=== PATIENT | male | born 1940 | race Caucasian/White ===

== ENCOUNTER 2020-10-11 11:42 | Outpatient (CLI) | payer MEDICARE, BC ==
[2020-10-11 13:52] LABS: Hemoglobin 15.6 g/dL (13.5-17.5); Mean Corpuscular HGB CONC 34.1 g/dL (32.0-36.0); Mean Corpuscular Hemoglobin 32.2 pg (27.0-33.0); Mean Corpuscular Volume 94.6 fl (81.2-95.1); Mean Platelet Volume 10.6 fl (7.4-10.4); Platelet Count 247 10x3/uL (150-450); RBC Distribution Width 12.9 % (11.5-14.5); Red Blood Cell (RBC) Count 4.84 10x6/uL (4.32-5.72); White Blood Cell (WBC) Count 6.5 10x3/uL (3.5-10.5)
[2020-10-11 14:01] LABS: INR-International Normal Ratio 1.1; Prothrombin Time 12.6 sec (9.5-12.1)
[2020-10-11 14:16] LABS: Anion Gap 13 mmol/L (10-20); BUN (Urea Nitrogen) 30 mg/dL (8.4-25.7); Calc. Creatinine Clearance 0 mL/min (70-130); Calcium 9.8 mg/dL (7.8-10.44); Carbon Dioxide 28 mmol/L (23-31); Chloride 108 mmol/L (98-107); Glucose 104 mg/dL (83-110); Potassium 4.3 mmol/L (3.5-5.1); Sodium 145 mmol/L (136-145)
[2020-10-12 07:59] LABS: SARS-CoV-2 PCR by NAA Not Detected (NotDetected)
== END 2020-10-11 11:43 | disposition home or self-care (01) ==
LOC: LABBT 11:42
PROVIDERS: ATTEND Internal Medicine Cardiovascular Disease
DX: Z01.818 Encounter for other preprocedural examination (principal); I48.19 Other persistent atrial fibrillation
CPT/HCPCS: 80048; 85027; 85610; U0003; U0005

== ENCOUNTER 2020-10-14 07:01 | Day surgery (SDC) | payer MEDICARE, BC ==
[2020-10-13 12:54] VITALS: BMI 35.1
[2020-10-14] MEDS ORDERED: Heparin 25,000 units/D5W 500 ML ONE (09:36)
[2020-10-14] MEDS ORDERED: Heparin 10,000 UNITS/ 10 ML VIAL ONE (09:36)
[2020-10-14] MEDS ORDERED: Fentanyl 100 MCG/2 ML VIAL ONE ×2 (10:50→15:51)
[2020-10-14] MEDS ORDERED: Rocuronium Bromide 10 MG/ML (10ML VIAL) ONE (11:12)
[2020-10-14] MEDS ORDERED: Ondansetron PF 4 MG/2 ML Vial ONE (11:12)
[2020-10-14] MEDS ORDERED: PROPOFOL 200 MG/20 ML VIAL ONE (11:12)
[2020-10-14] MEDS ORDERED: Lidocaine 1% PF 5 ML VIAL ONE (11:12)
[2020-10-14] MEDS ORDERED: PHENYLEPHRINE-NS 100 MCG/ML 10 ML SYRINGE ONE (11:12)
[2020-10-14] MEDS ORDERED: Dexamethasone 20 MG/5 ML VIAL ONE (11:12)
[2020-10-14] MEDS ORDERED: Protamine Sulfate 50 MG/5 ML VIAL ONE (13:42)
[2020-10-14] MEDS ORDERED: Ondansetron HCl/PF 4 MG/2 ML Vial IVP PRN (14:17)
[2020-10-14] MEDS ORDERED: SUGAMMADEX SODIUM 200 MG/2 ML VIAL ONE (15:29)
== END 2020-10-14 18:16 | disposition home or self-care (01) ==
LOC: SDC 07:01
PROVIDERS: ATTEND Internal Medicine Cardiovascular Disease
PROC: B24BZZ4 Ultrasonography of Heart with Aorta, Transesophageal (ICD-10-PCS; principal; 2020-10-14)
PROC: B24CZZ4 Ultrasonography of Pericardium, Transesophageal (ICD-10-PCS; 2020-10-14)
PROC: 4B02XSZ Measurement of Cardiac Pacemaker, External Approach (ICD-10-PCS; 2020-10-14)
PROC: 02K83ZZ Map Conduction Mechanism, Percutaneous Approach (ICD-10-PCS; 2020-10-14)
DX: I48.19 Other persistent atrial fibrillation (principal); I48.3 Typical atrial flutter; I49.5 Sick sinus syndrome; I12.9 Hypertensive chronic kidney disease with stage 1 through stage 4 chronic kidney disease, or unspecified chronic kidney disease; N18.2 Chronic kidney disease, stage 2 (mild); Z79.01 Long term (current) use of anticoagulants; Z79.1 Long term (current) use of non-steroidal anti-inflammatories (NSAID); Z79.899 Other long term (current) drug therapy; Z95.0 Presence of cardiac pacemaker; Z98.52 Vasectomy status; Z95.5 Presence of coronary angioplasty implant and graft
CPT/HCPCS: 76942; 85347 ×2; 92960; 93005; 93312; 93613; 93655; 93656; 93662; C1730; C1732; C1759; C1894; C2630; 93010; J1100; J1644; J2405; J2704; J2720; J3010

== ENCOUNTER 2020-12-23 06:05 | Day surgery (SDC) | payer MEDICARE, BC ==
[2020-12-22 10:57] VITALS: BMI 35.7
[2020-12-23] MEDS ORDERED: PROPOFOL 20 ML ONE (07:07)
== END 2020-12-23 08:18 | disposition home or self-care (01) ==
LOC: CCL 06:05
PROVIDERS: ATTEND Internal Medicine Cardiovascular Disease
PROC: 5A2204Z Restoration of Cardiac Rhythm, Single (ICD-10-PCS; principal; 2020-12-23)
DX: I48.4 Atypical atrial flutter (principal); I48.0 Paroxysmal atrial fibrillation; I49.5 Sick sinus syndrome; I12.9 Hypertensive chronic kidney disease with stage 1 through stage 4 chronic kidney disease, or unspecified chronic kidney disease; N18.2 Chronic kidney disease, stage 2 (mild); I25.10 Atherosclerotic heart disease of native coronary artery without angina pectoris; Z79.01 Long term (current) use of anticoagulants; Z79.899 Other long term (current) drug therapy; Z88.8 Allergy status to other drugs, medicaments and biological substances; Z95.0 Presence of cardiac pacemaker
CPT/HCPCS: 92960; 93005; 93010; J2704

== ENCOUNTER 2021-12-08 14:42 | Outpatient (CLI) | payer MEDICARE, BC ==
[2021-12-08 17:24] LABS: Hemoglobin 16.2 g/dL (13.5-17.5); Mean Corpuscular Hemoglobin 33.1 pg (27.0-33.0); Mean Corpuscular Volume 91.8 fl (81.2-95.1); Mean Platelet Volume 10.3 fl (7.4-10.4); Platelet Count 264 10x3/uL (150-450); RBC Distribution Width 12.4 % (11.5-14.5); White Blood Cell (WBC) Count 7.2 10x3/uL (3.5-10.5)
[2021-12-08 17:40] LABS: INR-International Normal Ratio 1.1; Prothrombin Time 11.9 sec (9.5-12.1)
[2021-12-08 17:47] LABS: Anion Gap 16 mmol/L (10-20); BUN (Urea Nitrogen) 24 mg/dL (8.4-25.7); Calc. Creatinine Clearance 0 mL/min (70-130); Calcium 9.3 mg/dL (7.8-10.44); Carbon Dioxide 26 mmol/L (23-31); Chloride 104 mmol/L (98-107); Estimated GFR 88; Glucose 91 mg/dL (83-110); Sodium 142 mmol/L (136-145)
== END 2021-12-08 14:43 | disposition home or self-care (01) ==
LOC: LABBT 14:42
PROVIDERS: ATTEND Internal Medicine Cardiovascular Disease
DX: Z01.812 Encounter for preprocedural laboratory examination (principal); I48.19 Other persistent atrial fibrillation
CPT/HCPCS: 80048; 85027; 85610

== ENCOUNTER 2021-12-13 06:21 | Day surgery (SDC) | payer MEDICARE, BC ==
[2021-12-12 09:48] VITALS: BMI 35.9
== END 2021-12-13 07:08 | disposition home or self-care (01) ==
LOC: SDC 06:21
PROVIDERS: ATTEND Internal Medicine Cardiovascular Disease
DX: I48.0 Paroxysmal atrial fibrillation (principal); I48.3 Typical atrial flutter; I48.4 Atypical atrial flutter; I49.5 Sick sinus syndrome; I12.9 Hypertensive chronic kidney disease with stage 1 through stage 4 chronic kidney disease, or unspecified chronic kidney disease; N18.2 Chronic kidney disease, stage 2 (mild); Z53.9 Procedure and treatment not carried out, unspecified reason; Z79.899 Other long term (current) drug therapy; Z88.8 Allergy status to other drugs, medicaments and biological substances; Z95.0 Presence of cardiac pacemaker
CPT/HCPCS: 93005; 93010

== ENCOUNTER 2021-12-20 05:33 | Day surgery (SDC) | payer MEDICARE, BC ==
[2021-12-19 13:08] VITALS: BMI 35.4
[2021-12-20] MEDS ORDERED: PROPOFOL 40 ML ONE (06:37)
== END 2021-12-20 08:35 | disposition home or self-care (01) ==
LOC: SDC 05:33
PROVIDERS: ATTEND Internal Medicine Cardiovascular Disease
PROC: 5A2204Z Restoration of Cardiac Rhythm, Single (ICD-10-PCS; principal; 2021-12-20)
DX: I48.4 Atypical atrial flutter (principal); I48.0 Paroxysmal atrial fibrillation; Z79.899 Other long term (current) drug therapy; Z88.8 Allergy status to other drugs, medicaments and biological substances; Z95.0 Presence of cardiac pacemaker
CPT/HCPCS: 92960; 93005; 93010; J2704

== ENCOUNTER 2023-02-09 05:46 | Day surgery (SDC) | payer MEDICARE, BC ==
[2023-02-07 14:27] VITALS: BMI 33.2
[2023-02-08 10:05] LABS: Hematocrit 43.7 % (38.8-50.0); Hemoglobin 15.3 g/dL (13.5-17.5); Mean Corpuscular Hemoglobin 33.4 pg (27.0-33.0); Mean Corpuscular Volume 95.4 fl (81.2-95.1); Mean Platelet Volume 9.8 fl (7.4-10.4); Platelet Count 294 10x3/uL (150-450); RBC Distribution Width 11.9 % (11.5-14.5); Red Blood Cell (RBC) Count 4.58 10x6/uL (4.32-5.72)
[2023-02-08 10:42] LABS: INR-International Normal Ratio 1.1; Prothrombin Time 11.9 sec (9.5-12.1)
[2023-02-08 10:52] LABS: Anion Gap 15 mmol/L (10-20); BUN (Urea Nitrogen) 36 mg/dL (8.4-25.7); Calc. Creatinine Clearance 62 mL/min (70-130); Calcium 9.1 mg/dL (7.8-10.44); Carbon Dioxide 22 mmol/L (23-31); Chloride 107 mmol/L (98-107); Estimated GFR 53; Glucose 109 mg/dL (83-110); Potassium 4.7 mmol/L (3.5-5.1); Sodium 139 mmol/L (136-145)
[2023-02-09] MEDS ORDERED: Lidocaine 1% PF 5 ML VIAL ONE (07:30)
[2023-02-09] MEDS ORDERED: PROPOFOL 200 MG/20 ML VIAL ONE (07:30)
== END 2023-02-09 08:34 | disposition home or self-care (01) ==
LOC: SDC 05:46
PROVIDERS: ATTEND Internal Medicine Cardiovascular Disease
PROC: 5A2204Z Restoration of Cardiac Rhythm, Single (ICD-10-PCS; principal; 2023-02-09)
DX: I48.4 Atypical atrial flutter (principal); I48.19 Other persistent atrial fibrillation
CPT/HCPCS: 80048; 85027; 85610; 92960; 93005; 93010; J2704